=== PATIENT | male | born 1960 | race Hispanic/Latino ===

== ENCOUNTER 2017-07-19 21:04 | Emergency (ER) | payer OTHER ==
[2017-07-19 21:49] LABS: Hematocrit 36.3 % (35.5-45.6); Hemoglobin 12.3 gm/dl (11.8-15.2); Mean Corpuscular HGB Conc 34 % (32-34); Mean Corpuscular Hemoglobin 32 pg (28-32); Mean Corpuscular Volume 95 fl (84-94); Platelet Count 282 K/mm3 (140-440); Red Blood Count 3.81 M/mm3 (3.65-5.03); Red Cell Distribution Width 13.8 % (13.2-15.2); White Blood Count 7.1 K/mm3 (4.5-11.0)
[2017-07-19] MEDS ORDERED: NACL 0.9% 1000 ML 1,000 ML ONE (21:55)
[2017-07-19] MEDS ORDERED: NACL 0.9% 1000 ML 1,000 ML IV ONE ×2 (21:59→23:48)
[2017-07-19 22:03] LABS: Anion Gap 25 mmol/L; BUN/Creatinine Ratio 14; Blood Urea Nitrogen 13 mg/dL (9-20); Calcium 8.4 mg/dL (8.4-10.2); Carbon Dioxide 17 mmol/L (22-30); Chloride 97.9 mmol/L (98-107); Potassium 4.8 mmol/L (3.6-5.0); Sodium 135 mmol/L (137-145)
[2017-07-19 22:08] LABS: Glucose 619 mg/dL (75-100)
[2017-07-19 22:28] LABS: Blastocytes % (Manual) 0 %
[2017-07-19 22:29] LABS: Diff Status Complete; Polychromasia Few
[2017-07-19 23:26] LABS: Bilirubin,Urine NEG (Negative); Blood,Urine NEG (Negative); Ketones,Urine NEG (Negative); Leukocyte Esterase,Urine NEG (Negative); Nitrite,Urine NEG (Negative); Protein,Urine <15 mg/dL mg/dL (Negative); Urobilinogen,Urine < 2.0 mg/dL (<2.0); WBC,Urine < 1.0 /HPF (0.0-6.0)
--- NOTE | 2017-07-20 00:39 | Emergency Department Report ---
ED General Adult HPI - General Chief complaint: Hyperglycemia Stated complaint: HYPERGLYCEMIA Time Seen by Provider: 07/19/17 23:17 Source: patient Mode of arrival: Ambulatory Limitations: No Limitations - History of Present Illness Initial comments: Patient went to alcohol rehab but says and he said he did not feel fine and felt his blood sugar was elevated so they sent him down here for evaluation. Patient said he felt nausea . He said he was just discharged from [facility] today for DKA. He said he hasn't taken his insulin because he has been estranged from his and his medications at home. Patient also complains of a headache and lightheadedness. -: Gradual Location: head Radiation: non-radiation Severity scale (0 -10): 8 Quality: aching Consistency: intermittent Improves with: none Worsens with: none Associated Symptoms: malaise, nausea/vomiting Treatments Prior to Arrival: none - Related Data Allergies Allergy/AdvReac Type Severity Reaction Status Date / Time No Known Allergies Allergy Verified 07/19/17 21:15 ED Review of Systems ROS: Stated complaint: HYPERGLYCEMIA Other details as noted in HPI Comment: All other systems reviewed and negative ED Past Medical Hx - Past Medical History Hx Diabetes: Yes (type 1) Additional medical history: alcoholism - Surgical History Past Surgical History?: Yes Hx Appendectomy: Yes Additional Surgical History: hip - Social History Smoking Status: Never Smoker Substance Use Type: Alcohol ED Physical Exam - General Limitations: No Limitations General appearance: alert, in no apparent distress - Head Head exam: Present: atraumatic, normocephalic - Eye Eye exam: Present: normal appearance, PERRL Pupils: Present: normal accommodation - ENT ENT exam: Present: normal exam, normal orophraynx - Neck Neck exam: Present: normal inspection, tenderness - Respiratory Respiratory exam: Present: normal lung sounds bilaterally. Absent: respiratory distress, wheezes - Cardiovascular Cardiovascular Exam: Present: regular rate, normal rhythm - GI/Abdominal GI/Abdominal exam: Present: soft, distended. Absent: tenderness, guarding, rebound - Rectal Rectal exam: Present: deferred - Extremities Exam Extremities exam: Present: normal inspection. Absent: full ROM - Back Exam Back exam: Present: normal inspection, full ROM - Neurological Exam Neurological exam: Present: alert, altered, oriented X3 - Psychiatric Psychiatric exam: Present: depressed - Skin Skin exam: Present: warm, dry ED Course Vital Signs 07/19/17 07/19/17 07/19/17 21:15 23:00 23:06 Temperature 97.6 F 97.7 F Pulse Rate 111 H 95 H 94 H Respiratory 16 15 16 Rate Blood Pressure 86/52 104/62 Blood Pressure 113/71 [Right] O2 Sat by Pulse 96 97 99 Oximetry 07/19/17 07/19/17 07/19/17 23:15 23:30 23:36 Temperature Pulse Rate 92 H 93 H 94 H Respiratory 11 L 17 18 Rate Blood Pressure 99/61 111/63 Blood Pressure [Right] O2 Sat by Pulse 99 99 Oximetry 07/19/17 07/20/17 07/20/17 23:45 00:00 00:15 Temperature Pulse Rate 90 92 H 98 H Respiratory 18 16 16 Rate Blood Pressure 106/66 104/68 104/68 Blood Pressure [Right] O2 Sat by Pulse 96 95 99 Oximetry ED Medical Decision Making - Lab Data Result diagrams: 07/19/17 21:28 07/19/17 21:28 - EKG Data EKG shows normal: sinus rhythm (sinus tachycardia), axis (normal), intervals ( normal), QRS complexes (normal), ST-T waves (normal) Rate: tachycardia - EKG Data When compared to previous EKG there are: no significant change Interpretation: no acute changes Critical care attestation.: If time is entered above; I have spent that time in minutes in the direct care of this critically ill patient, excluding procedure time. ED Disposition Clinical Impression: Hyperglycemia Disposition: - TO HOME OR SELFCARE Is pt being admited?: No Does the pt Need Aspirin: No Condition: Stable Instructions: Diabetic Hyperglycemia (ED) Additional Instructions: Particular Lantus and Humalog as advised by Adri jovel Referrals: PRIMARY CARE, [Primary Care Provider] - 3-5 Days Time of Disposition: 01:42 Print Language: LEBANESE
[2017-07-20 02:10] VITALS: BP 102/63
== END 2017-07-20 02:09 | disposition home or self-care (01) ==
LOC: ED 21:04
DX: E10.65 Type 1 diabetes mellitus with hyperglycemia (principal); R53.81 Other malaise; R11.0 Nausea
CPT/HCPCS: 36415; 80048; 81001; 82805; 82962; 83930; 85007; 85025; 93005; 93010; 96361; 96374; 99284; J7030; J1815